=== PATIENT | male | born 1995 | race Caucasian/White ===

== ENCOUNTER 2020-03-06 18:52 | Emergency (ER) | payer OTHER, SELFPAY ==
--- NOTE | ~2020-03-06 | CT_ITS ---
EXAMINATION: CT abdomen pelvis w con EXAM DATE: 03/06/2020 20:22 INDICATION: Nausea and vomiting. Abdominal pain. TECHNIQUE: Spiral CT of the abdomen and pelvis was performed following intravenous injection of 100 m L Omnipaque 350. Axial, coronal and sagittal images were reviewed. The dose-length product (DLP) fo r this examination was 283.51 mGy-cm. The exposure was tailored according to patient size (auto mA e xposure control), and iterative reconstruction (ASIR) was used as additional dose reduction technique . There is no prior study for comparison. FINDINGS: The liver, spleen, adrenal glands and pancreas are unremarkable. Gallbladder is unremarkab le. No biliary obstruction. Portal and splenic veins are patent. Kidneys enhance symmetrically. T here is no hydronephrosis. The prostate is unremarkable. The bladder is unremarkable. There is no retroperitoneal or pelvic lymphadenopathy. The appendix is normal. The stomach and small bowel are unremarkable. There is mild colonic divertic ulosis. There is no adjacent inflammatory change to suggest diverticulitis. No free intraperitoneal gas. The heart is normal in size. There are no pericardial or pleural effusions. The lung bases are unremarkable. The bones are unremarkable. IMPRESSION: 1. No acute intra-abdominal findings. Reviewed, dictated and finalized at location A.
[2020-03-06 18:54] VITALS: BP 162/90; PULSE 90; RESP 18; TEMP 36.9; O2SAT 100
[2020-03-06 19:15] LABS: Basophils Percent Auto 0.2 % (0.2-1.2); Hematocrit 46.9 % (42.0-52.0); Hemoglobin 16.5 g/dL (14.0-18.0); Immature Granulocyte Absolute 0.04 K/mm3 (0.00-0.031); Immature Granulocyte Percent A 0.3 % (0-0.5); Lymphocytes Absolute Auto 0.65 K/mm3 (0.9-3.2); Lymphocytes Percent Auto 5.1 % (18.3-44.2); Mean Corpuscular HGB Conc 35.2 g/dl (32-36); Mean Corpuscular Volume 82.6 fl (80-100); Mean Platelet Volume 9.3 fl (7.4-10.4); Monocytes Absolute Auto 0.4 K/mm3 (0.1-0.6); Monocytes Percent Auto 3.1 % (2.6-8.5); Neutrophils Absolute Auto 11.6 K/mm3 (1.3-6.7); Neutrophils Percent Auto 91.3 % (45.5-73.1); Platelet Count Result 346 k/mm3 (150-375); Red Blood Count 5.68 M/mm3 (4.6-6.20); Red Cell Distribution Width 12.2 % (11.5-14.5); White Blood Count 12.7 K/mm3 (4.5-10.0)
[2020-03-06] MEDS: ONDANSETRON INJ 4 MG/2 ML VIAL IV PUSH ×2 (19:32→21:07)
[2020-03-06] MEDS: SODIUM CHLORIDE 0.9% IV 1,000 ML 999 ML IV CONT (19:33)
--- NOTE | 2020-03-06 19:34 | ED.NAVMDI ---
HPI - Nausea/Vomiting/Diarrhea General Chief complaint: Nausea/Vomiting/Diarrhea Stated complaint: Nausea/vomiting Time Seen by Provider: 03/06/20 19:26 History of Present Illness HPI Narrative: Patient presents with his mother for periumbilical abdominal pain and vomiting. It started at 5 AM this morning. He has a history of appendicitis 3 years ago that was treated with antibiotics. He has no documented fever but had chills and sweats with the vomiting. He also had right flank pain earlier today. He has no history of kidney stone or urinary tract infection. 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 He is only smokes 3 cigarettes in his life, drinks occasional alcohol, and has used marijuana. Surgeries include a circumcision as a teenager. MD elicited complaint: nausea and vomiting Pertinent past history: bowel obstruction Onset (ago): hour(s) Related Data Allergies Allergy/AdvReac Type Severity Reaction Status Date / Time Penicillins Allergy Mild Unknown Verified 03/06/20 18:57 Review of Systems Review of Systems: Narrative: CONSTITUTIONAL: Denies fever, chills. States she had a sweats with recent vomiting here in the ER. EYES: Denies visual changes, redness, or discharge. ENT: Denies rhinorrhea, congestion, sore throat, or otalgia. CARDIOVASCULAR: Denies chest pain, palpitations, or edema. RESPIRATORY: Denies cough or dyspnea. GASTROINTESTINAL: He has abdominal pain, nausea, vomiting. GENITOURINARY: Denies dysuria or hematuria. SKIN: Denies rash or itching. MUSCULOSKELETAL: Denies back pain, joint pain, or myalgia. NEUROLOGIC: Denies headache, numbness, or weakness. PSYCHIATRIC: Denies anxiety or depression. [facility] Past Medical History Medical History (Updated 03/06/20 @ 20:56 by Camila Hughes MD) Appendicitis Surgical History Surgical History (Updated 03/06/20 @ 19:36 by Camila Hughes MD) History of circumcision Social History Social History (Updated 03/06/20 @ 19:37 by Camila Hughes MD) Smoking status: Former smoker Alcohol intake: current Substance use: current Substance use type: marijuana Gender identity (if verbalized by the patient): Male Exam Narrative: Exam Narrative: GENERAL: Diaphoretic and actively vomiting. HEAD: Normocephalic, atraumatic. EYES: PERRLA and EOMI. ENT: Nares clear, no rhinorrhea or epistaxis. Mucous membranes moist. NECK: Supple. CHEST: Clear to auscultation. No respiratory distress. HEART: Regular rate and rhythm. No murmur heard. Normal peripheral pulses. ABDOMEN: Soft, nontender, nondistended, normal active bowel sounds. EXTREMITIES: Normal range of motion. No edema. SKIN: Warm, dry, no rash. NEURO: No focal deficits. Alert and oriented x3. PSYCH: Normal mood and affect. Course Reevaluation(s) Reevaluation #1: Went in to tell the patient the good results on the CT findings. He is feeling better but would request another dose of nausea medicine before leaving. I explained it may be a virus or some food poisoning. Date: 03/06/20 Time: 20:55 Vital Signs Vital signs: Vital Signs Temperature 98.4 F 03/06/20 18:54 Pulse Rate 90 03/06/20 18:54 Respiratory Rate 18 03/06/20 18:54 Blood Pressure 162/90 H 03/06/20 18:54 Pulse Oximetry 100 03/06/20 18:54 Temperature 98.4 F 03/06/20 18:54 Pulse Rate 90 03/06/20 18:54 Respiratory Rate 18 03/06/20 18:54 Blood Pressure 162/90 H 03/06/20 18:54 Pulse Oximetry 100 03/06/20 18:54 MDM - Nausea/Vomiting/Diarrhea Medical Records Attestation: I reviewed the patient's medical records. Lab Data Attestation: I reviewed the patient's lab results. Result diagrams: 03/06/20 19:10 03/06/20 19:10 Labs: Lab Results 03/06/20 03/06/20 Range/Units 19:10 19:10 WBC 12.7 H (4.5-10.0) K/mm3 RBC 5.68 (4.6-6.20) M/mm3 Hgb 16.5 (14.0-18.0) g/dL Hct 46.9 (42.0-52.0) % MCV 82.6 (80-100) fl MCH 29.0 (26-34) pg MCHC 35.
[2020-03-06 19:38] LABS: Alanine Aminotransferase 30 U/L (4-50); Albumin Level 5.2 g/dL (3.5-5.1); Alkaline Phosphatase 44 U/L (38-126); Aspartate Amino Transferase 36 U/L (17-59); Bilirubin,Total 1.1 mg/dL (0.2-1.3); Blood Urea Nitrogen 14 mg/dL (9-20); Calcium 10.3 mg/dL (8.4-10.2); Carbon Dioxide 23 mmol/L (22-30); Chloride 104 mmol/L (98-107); Estimated CRCL calculation 145 ml/min; Estimated Glomerular Filt Rate > 60; Glucose 132 mg/dL (75-110); Lipase 92 U/L (23-300); Potassium 3.6 mmol/L (3.4-5.0); Sodium 139 mmol/L (137-145)
--- NOTE | 2020-03-06 19:42 | PC.NURSE ---
PT STATES UNABLE TO URINATE AT THIS TIME. DR HO AWARE. WILL CONTINUE TO CONTINUE TO MONITOR
[2020-03-06 21:11] VITALS: BP 124/60; PULSE 89; RESP 20; O2SAT 99
== END 2020-03-06 21:13 | disposition home or self-care (01) ==
PROVIDERS: Emergency Medicine; Emergency Provider Emergency Medicine; PCP Family Medicine
DX: K52.9 Noninfective gastroenteritis and colitis, unspecified (principal); Z87.891 Personal history of nicotine dependence
CPT/HCPCS: 36415; 74177; 80053; 83690; 85025; 96361; 96374; 96376; 99284; J2405; J7030; Q9967

== ENCOUNTER 2020-09-30 20:58 | Emergency (ER) | payer OTHER, SELFPAY ==
--- NOTE | ~2020-09-30 | CT_ITS ---
EXAMINATION: CT abdomen pelvis w con INDICATION: Periumbilical and lower abdominal pain, vomiting TECHNIQUE: Computed tomographic images of the abdomen and pelvis were obtained after the administrati on of 100 cc of Omnipaque 350 intravenous contrast. The dose-length product (DLP) was 259.18 mGy-cm. Automated exposure control and iterative reconstruction technique were employed. COMPARISON: 03/06/2020 FINDINGS: The lung bases are clear. The heart size is normal. The liver, spleen, pancreas, gallbladde r, and adrenal glands are normal. The kidneys are unremarkable. No pathologically enlarged abdominal or pelvic lymph nodes are identified. There is no free intraperitoneal gas or evidence of bowel obstr uction. The appendix is normal. IMPRESSION: 1. No CT correlate for the patient's symptoms. Reviewed, dictated and finalized at location A. ER OPERATOR
[2020-09-30 21:05] VITALS: BP 140/73; PULSE 73; RESP 20; TEMP 36.6; O2SAT 99
[2020-09-30 21:13] VITALS: BP 140/73; PULSE 62; RESP 15; O2SAT 100
[2020-09-30] MEDS: ONDANSETRON INJ 4 MG/2 ML VIAL IV PUSH ×2 (21:22→23:28)
[2020-09-30] MEDS: SODIUM CHLORIDE 0.9% IV 1,000 ML 999 ML IV CONT (21:22)
[2020-09-30 21:23] LABS: Basophils Percent Auto 0.3 % (0.2-1.2); Hematocrit 46.5 % (42.0-52.0); Hemoglobin 16.2 g/dL (14.0-18.0); Immature Granulocyte Absolute 0.04 K/mm3 (0.00-0.031); Immature Granulocyte Percent A 0.3 % (0-0.5); Lymphocytes Absolute Auto 0.57 K/mm3 (0.9-3.2); Lymphocytes Percent Auto 4.2 % (18.3-44.2); Mean Corpuscular HGB Conc 34.8 g/dl (32-36); Mean Corpuscular Hemoglobin 28.9 pg (26-34); Monocytes Absolute Auto 0.5 K/mm3 (0.1-0.6); Monocytes Percent Auto 3.3 % (2.6-8.5); Neutrophils Absolute Auto 12.3 K/mm3 (1.3-6.7); Neutrophils Percent Auto 91.9 % (45.5-73.1); Platelet Count Result 323 k/mm3 (150-375); Red Cell Distribution Width 11.9 % (11.5-14.5); White Blood Count 13.4 K/mm3 (4.5-10.0)
[2020-09-30 21:58] LABS: Alanine Aminotransferase 42 U/L (4-50); Alkaline Phosphatase 41 U/L (38-126); Anion Gap 18 mmol/L (8-16); Aspartate Amino Transferase 44 U/L (17-59); Bilirubin,Total 1.2 mg/dL (0.2-1.3); Blood Urea Nitrogen 12 mg/dL (9-20); Calcium 10.1 mg/dL (8.4-10.2); Carbon Dioxide 22 mmol/L (22-30); Chloride 100 mmol/L (98-107); Estimated CRCL calculation 114 ml/min; Estimated Glomerular Filt Rate > 60; Glucose 133 mg/dL (75-110); Lipase 42 U/L (23-300); Potassium 3.7 mmol/L (3.4-5.0); Sodium 140 mmol/L (137-145)
[2020-09-30] MEDS: PROMETHAZINE HCL 25 MG/ML AMPUL 12.5 MG IV PUSH (22:15)
--- NOTE | 2020-09-30 22:55 | ED.GENADULT ---
HPI - General Adult General Chief complaint: Abdominal Pain Stated complaint: VOMITING Time Seen by Provider: 09/30/20 21:04 History of Present Illness HPI narrative: Patient is a 25-year-old male who presents ER with frequent episodes of emesis. Over 20 bouts today. No blood. Has had some loose stools. Also is having diffuse abdominal cramping worse in the lower regions. No aggravating or alleviating factors. Has had similar episodes in the past. No formal diagnosis of irritable bowel syndrome or cyclic vomiting. He has had a colonoscopy that was unremarkable. No known sick contacts. No fevers or chills or sweats. No spoiled food that he can think of. Related Data Allergies Allergy/AdvReac Type Severity Reaction Status Date / Time Penicillins Allergy Mild Unknown Verified 03/06/20 18:57 Review of Systems Review of Systems: All systems reviewed & are unremarkable except as noted in HPI and below Constitutional: Constitutional: Denies chills, Denies fever(s) and Denies weakness ENT: Denies nasal congestion and Denies sore throat Cardiovascular: Cardiovascular: Denies chest pain, Denies rapid heart rate and Denies radiating jaw, neck or arm pain Respiratory: Respiratory: Denies cough, Denies dyspnea and Denies wheezing Gastrointestinal: Gastrointestinal: Reports abdominal pain, Reports diarrhea, Reports nausea and Reports vomiting Genitourinary: Genitourinary: Denies dysuria and Denies urinary frequency PMFSH Past Medical History Medical History (Updated 10/01/20 @ 00:32 by Rashid Collins MD) Appendicitis Surgical History Surgical History (Updated 03/06/20 @ 19:36 by Camila Hughes MD) History of circumcision Social History Social History (Updated 03/06/20 @ 19:37 by Camila Hughes MD) Smoking status: Former smoker Alcohol intake: current Substance use: current Substance use type: marijuana Gender identity (if verbalized by the patient): Male Exam Narrative: Exam Narrative: GENERAL: Uncomfortable-appearing, well-nourished, and in no acute distress. HEAD: Normocephalic, atraumatic. ENT: Mucous membranes moist. CHEST: Clear to auscultation. No respiratory distress. HEART: Regular rate and rhythm. Normal peripheral pulses. ABDOMEN: Soft, nontender, nondistended EXTREMITIES: Normal range of motion. No edema. SKIN: Warm, dry, no rash. NEURO: Alert and oriented x3. PSYCH: Normal mood and affect. Course Course Emergency Course: Unremarkable CT. Nausea improved with Zofran x2 and Phenergan x1. Also received Bentyl. Discharged with Bentyl and antiemetics. Return precautions discussed. Needs follow-up with GI. Vital Signs Vital signs: Vital Signs Temperature 97.9 F 09/30/20 21:05 Pulse Rate 73 09/30/20 21:05 Respiratory Rate 20 09/30/20 21:05 Blood Pressure 140/73 09/30/20 21:05 Pulse Oximetry 99 09/30/20 21:05 Temperature 97.9 F 09/30/20 21:05 Pulse Rate 62 09/30/20 21:13 Respiratory Rate 15 09/30/20 21:13 Blood Pressure 140/73 09/30/20 21:13 Pulse Oximetry 100 09/30/20 21:13 Medical Decision Making Vital Signs Vital Signs: Vital Signs Temperature 97.9 F 09/30/20 21:05 Pulse Rate 73 09/30/20 21:05 Respiratory Rate 20 09/30/20 21:05 Blood Pressure 140/73 09/30/20 21:05 Pulse Oximetry 99 09/30/20 21:05 Temperature 97.9 F 09/30/20 21:05 Pulse Rate 62 09/30/20 21:13 Respiratory Rate 15 09/30/20 21:13 Blood Pressure 140/73 09/30/20 21:13 Pulse Oximetry 100 09/30/20 21:13 Lab Data Result diagrams: 09/30/20 21:16 09/30/20 21:16 Labs: Lab Results 09/30/20 09/30/20 09/30/20 Range/Units 21:16 21:16 23:32 WBC 13.4 H (4.5-10.0) K/mm3 RBC 5.60 (4.6-6.20) M/mm3 Hgb 16.2 (14.0-18.0) g/dL Hct 46.5 (42.0-52.0) % MCV 83.0 (80-100) fl MCH 28.9 (26-34) pg MCHC 34.8 (32-36) g/dl RDW 11.9 (11.5-14.5) % Plt Count 323 (150-375)
[2020-09-30] MEDS: DICYCLOMINE HCL INJ 20 MG/2 ML VIAL IM (23:28)
[2020-09-30 23:50] LABS: Add Urine Microscopic? YES; Appearance Urine Clear (Clear); Bilirubin Urine Negative (Negative); Blood Urine Negative (Negative); Color Urine Yellow (Yellow); Glucose Urine UA Negative (Negative); Ketones Urine Trace mg/dL (Negative); Leukocyte Esterase Ur Negative LEU/UL (Negative); Mucus Urine Rare /lpf; Nitrate Urine Negative (Negative); Protein Urine Negative (Negative); RBC Urine 0-2 /hpf (0-2); Squamous Epithelial Cell Urine Rare /hpf (Few); Urobilinogen Urine Negative mg/dL (<2.0); WBC Urine 0-3 /hpf
[2020-09-30 23:53] LABS: Specific Grav Ur 1.045 (1.001-1.035)
[2020-10-01 01:02] VITALS: BP 126/89; PULSE 104; RESP 11; O2SAT 97
[2020-10-01 18:38] LABS: SARS-CoV-2 RNA PCR Negative
== END 2020-10-01 01:04 | disposition home or self-care (01) ==
PROVIDERS: Emergency Provider Emergency Medicine; PCP Family Medicine
DX: K52.9 Noninfective gastroenteritis and colitis, unspecified (principal); Z20.828 Contact with and (suspected) exposure to other viral communicable diseases; Z87.891 Personal history of nicotine dependence
CPT/HCPCS: 36415; 74177; 80053; 81001; 83690; 85025; 96361; 96372; 96374; 96375; 96376; 99284; C9803; J0500; J2405; J2550; J7030; Q9967; U0003

== ENCOUNTER 2023-02-07 07:57 | Outpatient (CLI) | payer BC, SELFPAY ==
--- NOTE | 2023-02-07 08:02 | EST_ITS ---
Patient Info Name: David Rothman Age: 27 years : 1995 Gender: Male Ht: 70 in Wt: 168 lbs BSA: 1.95 m2 HR: 60 bpm BP: 137 / 93 mmHg Heart Rhythm: Sinus Rhythm Exam Date: 02/07/2023 8:22 AM Exam Location: [facility] Stress Patient Status: Outpatient Admit Date: 02/07/2023 Staff Ordering Physician: Hermilo Guerrero DO Attending Provider: Hermilo Guerrero DO Exercise Technologist: Vanessa Childs CT Exercise Physician: Hermilo Guerrero DO Exam Type: CA stress test treadmill Study Info Indications - CHEST PAIN A treadmill exercise stress test was performed. Summary 1. 1. Negative Yohannes exercise stress test for ischemic ST changes by ECG criteria. 2. 2. Good functional capacity, achieving 14.9 METs of workload. 3. 3. Appropriate HR response to exercise. 4. 4. Appropriate HR recovery at 1 minute post exercise. 5. 5. No imaging with stress testing. 6. 6. Patient informed of the above results. Protocol: Yohannes Stress ECG Details Stage: REST Duration (min): 1 min : 4 sec Speed (mph): 0.0 Grade (%): 0 HR (bpm): 62 SBP (mmHg): 137 DBP (mmHg): 93 METS: --- Stage: REST Duration (min): 9 min : 1 sec Speed (mph): 0.0 Grade (%): 0 HR (bpm): 70 SBP (mmHg): 137 DBP (mmHg): 93 METS: --- Stage: STAGE 1 Duration (min): 1 min : 0 sec Speed (mph): 1.7 Grade (%): 10 HR (bpm): 83 SBP (mmHg): 137 DBP (mmHg): 93 METS: --- Stage: STAGE 1 Duration (min): 2 min : 0 sec Speed (mph): 1.7 Grade (%): 10 HR (bpm): 74 SBP (mmHg): 137 DBP (mmHg): 93 METS: --- Stage: STAGE 1 Duration (min): 3 min : 0 sec Speed (mph): 1.7 Grade (%): 10 HR (bpm): 89 SBP (mmHg): 177 DBP (mmHg): 86 METS: --- Stage: STAGE 2 Duration (min): 1 min : 0 sec Speed (mph): 2.5 Grade (%): 12 HR (bpm): 101 SBP (mmHg): 177 DBP (mmHg): 86 METS: --- Stage: STAGE 2 Duration (min): 2 min : 0 sec Speed (mph): 2.5 Grade (%): 12 HR (bpm): 96 SBP (mmHg): 185 DBP (mmHg): 80 METS: --- Stage: STAGE 2 Duration (min): 3 min : 0 sec Speed (mph): 2.5 Grade (%): 12 HR (bpm): 99 SBP (mmHg): 185 DBP (mmHg): 80 METS: --- Stage: STAGE 3 Duration (min): 1 min : 0 sec Speed (mph): 3.4 Grade (%): 14 HR (bpm): 117 SBP (mmHg): 125 DBP (mmHg): 79 METS: --- Stage: STAGE 3 Duration (min): 2 min : 0 sec Speed (mph): 3.4 Grade (%): 14 HR (bpm): 121 SBP (mmHg): 125 DBP (mmHg): 79 METS: --- Stage: STAGE 3 Duration (min): 3 min : 0 sec Speed (mph): 3.4 Grade (%): 14 HR (bpm): 123 SBP (mmHg): 125 DBP (mmHg): 79 METS: --- Stage: STAGE 4 Duration (min): 1 min : 0 sec Speed (mph): 4.2 Grade (%): 16 HR (bpm): 139 SBP (mmHg): 125 DBP (mmHg): 79 METS: --- Stage: STAGE 4 Duration (min): 2 min : 0 sec Speed (mph): 4.2 Grade (%): 16 HR (bpm): 151 SBP (mmHg): 125 DBP (mmHg): 79 METS: --- ------
== END 2023-02-07 07:58 | disposition home or self-care (01) ==
PROVIDERS: PCP Family Medicine; Visit Provider Internal Medicine Cardiovascular Disease
DX: R07.9 Chest pain, unspecified (principal)
CPT/HCPCS: 93017

== ENCOUNTER 2023-03-31 11:04 | Emergency (ER) | payer BC, SELFPAY ==
[2023-03-31 11:13] VITALS: BP 153/70; PULSE 55; RESP 16; TEMP 36.8; O2SAT 100
--- NOTE | 2023-03-31 11:33 | ED.URI ---
HPI - URI/Sore Throat General Chief Complaint: Upper Respiratory Infection Stated Complaint: SORE THROAT Time Seen by Provider: 03/31/23 11:30 Source: patient, RN notes reviewed and old records reviewed Mode of arrival: ambulatory Limitations: no limitations History of Present Illness HPI Narrative: 27 year old male who presents to [facility] care with complaints of sore throat for the past 3 days and has felt increasing pain with swallowing. Patent reports no cough, has been taking Ibuprofen and Tylenol around the clock for the past 2 days states no known fever, chills or sweats. Patient reports that he noticed a white area in the back of his throat near his right tonsil with more pain to right side of his throat. Patient reports no ill contacts. MD elicited complaint: sore throat Onset (ago): day(s) (3) Pain scale (0-10): 4 Able to tolerate fluids by mouth: Yes Treatments prior to arrival: acetaminophen and ibuprofen Related Data Allergies Allergy/AdvReac Type Severity Reaction Status Date / Time Penicillins Allergy Mild Unknown Verified 03/31/23 11:26 Review of Systems Review of Systems: CONSTITUTIONAL: Denies malaise, chills, sweats, or fever. EYES: Denies visual changes, redness, or discharge. ENT: Reports rhinorrhea, congestion,no sinus pain, otalgia positive for sore throat. CARDIOVASCULAR: Denies chest pain, palpitations, or edema. RESPIRATORY: Reports no cough.? Denies dyspnea. GASTROINTESTINAL: Denies abdominal pain, nausea, vomiting, diarrhea SKIN: Denies rash or itching. MUSCULOSKELETAL: Denies myalgia. NEUROLOGIC: Denies headache. All systems reviewed & are unremarkable except as noted in HPI and below PMFSH Past Medical History Medical History Appendicitis Surgical History Surgical History History of circumcision Social History Social History Smoking status: Former smoker Alcohol intake: current Substance use: current Substance use type: marijuana Gender identity (if verbalized by the patient): Male Comments At time of signature, agree with nursing past medical, surgical, social and family history. There is no relevant family history pertinent to the presenting complaint Exam Narrative: GENERAL: Well-appearing, well-nourished, and in no acute distress. HEAD: Normocephalic EYES: PERRLA, conjunctivae clear ENT: Nares clear, turbinates edematous and erythematous, clear discharge. Mucous membranes moist. TM pearly long with dull light reflex bilaterally; no tragal tenderness. Oropharynx erythematous with lesion. Tonsils red enlarged and without exudate, no drooling, no hoarseness, no trismus, uvula midline.white lesion in back of throat between uvula and right tonsil NECK: Supple. lymphadenopathy CHEST: Clear to auscultation, breath sounds equal. No wheezing, rhonchi, rales, or stridor. No respiratory distress, speaks in full sentences.SAO2 100% on room air HEART: Regular rate and rhythm. No murmur heard. SKIN: Warm, dry, no rash. NEURO: Alert and oriented x3. PSYCH: Normal mood and affect Course Course Emergency Course: Patient is aware of diagnosis, understands and agrees to treatment plan.? Anticipatory guidance given.? Patient agrees to follow-up as directed and is aware of reasons to seek care at the emergency department. Portions of this record may have been created with voice recognition software Level of Care: Express Care Visit Vital Signs Vital signs: Vital Signs Temperature 36.8 C 03/31/23 11:13 Pulse Rate 55 L 03/31/23 11:13 Respiratory Rate 16 03/31/23 11:13 Blood Pressure 153/70 H 03/31/23 11:13 Pulse Oximetry 100 03/31/23 11:13 Temperature 36.8 C 03/31/23 11:13 Pulse Rate 55 L 03/31/23 11:13 Respiratory Rate 16 03/31/23 11:13 Blood Pressure
== END 2023-03-31 11:44 | disposition home or self-care (01) ==
PROVIDERS: Emergency Provider Registered Nurse; PCP Family Medicine
DX: J02.9 Acute pharyngitis, unspecified (principal)
CPT/HCPCS: 87081; 87880; 99213; G0463